=== PATIENT | female | born 2000 | race Caucasian/White ===

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

== ENCOUNTER 2020-04-26 13:41 | Emergency (ER) | payer MEDICAID ==
[~2020-04-26] VITALS: Ht 154.9 cm; Wt 72.6 kg
[~2020-04-26 13:41] MED LIST changes: +IBUPROFEN600 MG ORAL; +LEVOTHYROXINE125 MCG ORAL
[2020-04-26 13:46] VITALS: BP 108/76
--- NOTE | 2020-04-26 13:46 | NUR ---
ED Nurse Note: Pt walked in to ED from home c/o swelling and pain to left 4th and right third and thumb fingernail beds, possible infection x2 weeks. Pt reports draining pus from the nails for the past couple of days. Denies fever. AAOx4. No SOB.
[2020-04-26] MEDS ORDERED: CEPHALEXIN500 MG ORAL (14:31)
--- NOTE | 2020-04-26 14:33 | Emergency Room Report ---
History of Present Illness General Chief Complaint: Skin Rash/Abscess Source: Patient Present Illness HPI 20-year-old female no past medical history presents today with multiple lesions to the base of patient's fingernail bilaterally. Patient states this was have been occurring for 2 weeks. She states that she picks her " hangnails" on these nails frequently. She is also noting pain. Severity mild, quality throbbing, timing 2 weeks. Patient states she has tried betadine with no relief. No other associated signs or symptoms. Patient does report a history of herpes however she states she has no recent cold sores or lesions. 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 PMH: [Denies] PSH: [Denies] Smoking: [Denies] Ethanol: [Denies] Drug: [Denies] Allergies: Coded Allergies: NO KNOWN DRUG ALLERGIES (Verified Allergy, Unknown, 07/04/15) COVID-19 Screening Contact w/high risk pt: No Experienced COVID-19 symptoms?: No COVID-19 Testing performed DIRECTOR OF STUDENT SERVICES: No Nursing Documentation-PMH Past Medical History: No History, Except For Hx Asthma: No Review of Systems Narrative Review of systems: CONST: No fevers or chills, No night sweats EYES: No eye pain, vision change, eye discharge HEAD/EARS/NOSE/THROAT: No earache, sore throat, or nasal discharge. PULMONARY: No SOB, no cough, no wheezing CARDIAC: No chest pain, No palpitations, no leg swelling GI: No abdominal pain, no vomiting, no diarrhea , no melena or BRBPR : No flank pain, no dysuria, no hematuria, no frequency. MUSCULOSKELETAL: No back pain, no neck pain, no leg pain SKIN: +base of fingernail lesions. No rash, no itching, no bruising NEUROLOGICAL: No headache, no dizziness, no paresthesia , no focal weakness. 14 point Review of Systems is otherwise negative except per HPI Physical Exam Vital Signs Date Time Temp Pulse Resp B/P (MAP) Pulse Ox O2 Delivery O2 Flow Rate FiO2 04/26/20 13:43 98.2 94 18 108/76 (87) 95 Room Air Other Organ Systems Physical Exam: GENERAL: Awake, alert, nontoxic, in no acute distress EYES: EOMI, conjunctiva without pallor HEAD/EARS/NOSE/THROAT: NCAT, oral mucosa moist, external nose and ear normal in appearance, oropharynx clear, no swelling or exudates. NECK: supple, nontender, no spasm, no JVD, no cervical adenopathy RESPIRATORY: no stridor, effort normal, no retractions, no accessory muscle use, BS clear bilaterally, no wheezes, no rhonchi, no rales, no rub. CARDIOVASCULAR: RRR, normal S1 S2, no murmur, no peripheral edema ABDOMINAL /GI: soft, nondistended, nontender, BS normal, no masses, no guarding, no Mcburneys point tenderness, no rebound, no Murpheys sign : No CVA tenderness MUSCULOSKELETAL: All extremities are non-tender, no swelling, FROM, normal strength, normal sensation, cap refill <2 seconds in all extremities EXTREMITIES: no leg swelling, pulses: 2+ brisk and normal in all distal extremities SKIN: base of 3 fingernails with erythema and redness, no purulent discharge, no fluctuance. Dry flakey skin noted, no vesicles. On both left and right hands. Otherwise skin has No rash, skin is warm and dry. No cyanosis, no pallor NEUROLOGICAL: awake, alert and appropriate, oriented x3, speech normal, motor and sensation grossly intact PSYCHIATRIC: Normal mood, normal affect Medical Decision Making PA Attestation Dr. Velasco Is my supervising Physician whom patient management has been discussed with. Diagnostic Impression: Primary Impression: Eponychia Additional Impression: Cellulitis Qualified Codes: L03.119 - Cellulitis of unspecified part of limb ER Course Pt. presents to the ED c/o base of fingernail pain bilaterally Ddx considered but are not limited to herpetic adrianne, abscess, paronychia, eponychia Vital signs: are WNL, pt. is afebrile H&PE are most consistent with eponychia ORDERS: none required at this time, the diagnosis is clinical ED INTERVENTIONS AND MDM: Do not suspect abscess, no purulent discharge or fluctuance noted at the base of the nail. Do not suspect herpetic adrianne, although patient has a history of herpes, she states she has had no recent outbreaks or been in contact with anyone with a recent herpes outbreak. Additionally patient states that she picks at the skin around her fingernail and I suspect that patient's erythema and tenderness is due to to skin infection from the picking. Advised patient to avoid picking her fingernails, send patient home with a prescription for Keflex and advised patient to return to the ER in 2 to 3 days for wound check if symptoms do not resolve. Advised patient to do warm soaks with her fingers and to follow-up with her primary care phys ician in 1 to 2 days. Advised patient return immediately if she experiences any worsening symptoms. Patient's tetanus shot was updated today given the break in skin. Patient was advised to take Tylenol or ibuprofen as needed for pain. DISCHARGE: At this time pt. is stable for d/c to home. Will provide printed patient care instructions, and any necessary prescriptions. Care plan and follow up instructions have been discussed with the patient prior to discharge. tetanus shot given Last Vital Signs Date Time Temp Pulse Resp B/P (MAP) Pulse Ox O2 Delivery O2 Flow Rate FiO2 04/26/20 13:46 98.2 94 18 108/76 95 Room Air Status: unchanged Disposition: HOME, SELF-CARE Condition: Stable Scripts Cephalexin* (KEFLEX*) 500 Mg Capsule 500 MG ORAL EVERY 6 HOURS for 7 Days, #28 CAP Prov: Tiffanie Hudson PA-C 04/26/20 Referrals: [facility]ERR[facility] (PCP) Janelle Nolen Comp. [facility] + [facility] Patient Instructions: Paronychia Additional Instructions: Take medications as directed. Do warm soaks of your hands.Do not pick your hang nails. Follow up with a Primary Care Provider in 1-2 days, even if your symptoms have resolved. Return to ER in 2-3 days for wound check Return sooner to ED if new symptoms occur, or current symptoms become worse. - Please note that this Emergency Department Report was dictated using Smartz[employer] railroad and bus motor mechanic technology software, occasionally this can lead to erroneous entry secondary to interpretation by the dictation equipment. Tiffanie Hudson PA-C Apr 26, 2020 14:33
[2020-04-26 14:43] VITALS: BP 108/76
[2020-04-26] MEDS ORDERED: Tetanus/Diptheria/Pertussis IM ONE ×2 (14:45→14:47)
--- NOTE | 2020-04-26 14:50 | NUR ---
ED Nurse Note: Pt cleared by ERPA for discharge. DC instructions was given and explained to pt and verbalized understanding of teachings. prescription sent electronically to the pharmacy of choice. All medical deviecs such as ID band removed. Pt is AAO x4, ambulatory and left with all personal belongings.
== END 2020-04-26 14:50 | disposition home or self-care (01) ==
LOC: EMR 14:12
DX: L60.8 Other nail disorders (principal); L03.012 Cellulitis of left finger; L03.011 Cellulitis of right finger; Z23 Encounter for immunization
CPT/HCPCS: 90471; 90715; Z7502; 99282

== ENCOUNTER 2020-05-16 13:15 | Emergency (ER) | payer MEDICAID ==
[~2020-05-16] VITALS: Ht 154.9 cm; Wt 72.6 kg
[~2020-05-16 13:15] MED LIST changes: +CEPHALEXIN500 MG ORAL
[2020-05-16 13:21] VITALS: BP 117/74
--- NOTE | 2020-05-16 13:38 | NUR ---
ED Nurse Note: Patient from home and walked in due to left side facial numbness with left arm weakness onset today at 0100am. No apparent slurring of speech or eye drooping. Patient is AAO x4, ambulates with steady gait. No respiratory distress.
--- NOTE | 2020-05-16 14:35 | Emergency Room Report ---
History of Present Illness General Chief Complaint: General Complaint Present Illness HPI 20 YO female presents to the ED c.o onset of left sided facial and left arm paresthesia with muscle weakness on the left side of the face since 1am today. Pt. reports when she drinks liquids spill out of the left side of the mouth. She reports difficulty with closing /blinking the left eye. Pt denies rashes, or significant recent illness. Pt. reports cold sores in her mouth. She denies BUTLER, dizziness. Allergies: Coded Allergies: NO KNOWN DRUG ALLERGIES (Verified Allergy, Unknown, 07/04/15) COVID-19 Screening Contact w/high risk pt: No Experienced COVID-19 symptoms?: No COVID-19 Testing performed REEL FILM INSPECTOR: No Patient History Past Medical History: see triage record Past Surgical History: none Pertinent Family History: none Last Menstrual Period: march Now: No Reviewed Nursing Documentation: PMH: Agreed; PSxH: Agreed Nursing Documentation-PMH Hx Asthma: No Review of Systems All Other Systems: negative except mentioned in HPI Physical Exam Vital Signs Date Time Temp Pulse Resp B/P (MAP) Pulse Ox O2 Delivery O2 Flow Rate FiO2 05/16/20 13:21 98.1 94 18 117/74 (88) 95 Room Air Medical Decision Making PA Attestation Dr. De León Is my supervising Physician whom patient management has been discussed with. Diagnostic Impression: Primary Impression: Left-sided 's palsy Additional Impression: Paresthesia ER Course Pt. presents to the ED c/o [ ] Ddx considered but are not limited to palsy, stroke, neuritis, Dissection, just to name a few. Vital signs: are WNL, pt. is afebrile H&PE are most consistent with palsy. pt. without neurological defect. Pt.'s eyebrow and forehead are involved. Pt. with evidence of viral infection having current cold sores. NO suspicion of shingles at this time. ORDERS: none required at this time, the diagnosis is clinical -Urine HcG: Negative. ED INTERVENTIONS: None required at this time. - D/w pt. to follow up with Neurologist if conservative treatment does not relieve symptoms or for further evaluation. DISCHARGE: At this time pt. is stable for d/c to home. Will provide printed patient care instructions, and any necessary prescriptions. Care plan and follow up instructions have been discussed with the patient prior to discharge. Labs Test 05/16/20 14:05 Urine HCG, Qualitative Negative (NEGATIVE) Last Vital Signs Date Time Temp Pulse Resp B/P (MAP) Pulse Ox O2 Delivery O2 Flow Rate FiO2 05/16/20 13:30 94 18 Room Air 05/16/20 13:21 98.1 117/74 95 Disposition: HOME, SELF-CARE Condition: Stable Scripts Dextran 70/Hypromellose (ARTIFICIAL TEARS EYE DROPS*) 15 Ml Drops 1 DROP LEFT EYE QID, #15 ML 0 Refills Prov: Tsering Tomlin 05/16/20 Valacyclovir Hcl* (VALTREX*) 500 Mg Tablet 500 MG ORAL TWICE A DAY for 7 Days, #14 TAB Prov: Tsering Tomlin 05/16/20 Prednisone* (PREDNISONE*) 20 Mg Tablet 60 MG ORAL DAILY for 5 Days, #18 TAB Take 3 tabs (60mg) daily x 5 days, then Take 2 tabs (40mg) once x 1 day, then reduce to 1 tab (20mg) once x 1 day, then DC. Prov: Tsering Tomlin 05/16/20 Referrals: [facility],REFERRING (PCP) Janelle Nolen Comp. [facility] + [facility] Patient Instructions: Palsy Additional Instructions: Take medications as directed. Follow up with a Primary Care Provider in 3-5 days, even if your symptoms have resolved. --Please review list of primary care clinics, if you do not already have a primary care provider Return sooner to ED if new symptoms occur, or current symptoms become worse. - Please note that this Emergency Department Report was dictated using WineNiceairplane woodworker technology software, occasionally this can lead to erroneous entry secondary to interpretation by the dictation equipment. Tsering Tomlin May 16, 2020 14:35
[2020-05-16] MEDS ORDERED: PREDNISONE20 MG ORAL (14:39)
[2020-05-16] MEDS ORDERED: VALACYCLOVIR500 MG ORAL (14:39)
[2020-05-16] MEDS ORDERED: ARTIFICIAL TEAR15 ML LEFT EYE (14:39)
[2020-05-16 14:51] VITALS: BP 120/75
--- NOTE | 2020-05-16 14:52 | NUR ---
ER DISCHARGE NOTE: Patient is cleared to be discharged per ERMD, pt is aox4, on room air, with stable vital signs. pt was given dc and prescription instructions, pt was able to verbalize understanding, pt id band removed. pt is able to ambulate with steady gait. pt took all belongings.
== END 2020-05-16 14:52 | disposition home or self-care (01) ==
LOC: EMR 13:55
DX: G51.0 Bell's palsy (principal); R20.2 Paresthesia of skin
CPT/HCPCS: 81025; Z7502; 99283